=== PATIENT | male | born 1945 | race Caucasian/White ===

== ENCOUNTER → 2017-11-01 | Day surgery (SDC) | payer OTHER ==
--- NOTE | 2017-11-01 08:52 | Operative Report ---
Operative/Inv Procedure Report Surgery Date: 11/01/17 Name of Procedure: Open ventral hernia repair with mesh Pre-Operative Diagnosis: Ventral hernia Post-Operative Diagnosis: Same Estimated Blood Loss: scant Surgeon/[employer] Policy Analyst: Rd Cherry MD Anesthesia: laryngeal mask airway Implants: 6.4 cm ventral Hola mesh Operative/Procedure Note Note: After informed consent patient brought to the operating room and laid supine. Gen. anesthesia obtained and the abdomen was prepped and draped. The periumbilical tissues were infiltrated with a cocktail local anesthesia. A curvilinear incision was made sharply. We dissected down to the umbilical stalk and circumferentially dissected it bluntly. The stock was then transected with cautery, thus exposing the defect. The hernia sac was circumferentially dissected down to level of fascia and incised the neck with cautery. Contents were then reduced. A small hole in the peritoneum was repaired with a running 3 -0 Vicryl suture. Preperitoneal planes were then created a circumferential fashion due to the need for preperitoneal mesh placement. We measured the defect. Defect was 3 cm in greatest dimension, transverse. 6.4 cm mesh was chosen and placed into the cavity. then unraveled below the defect. The fascia was then closed over the mesh with interrupted 0 Maxon sutures, incorporating a portion of the mesh laterally to keep it centered. Wound was irrigated with saline. The umbilical stalk re-created with 3-0 Vicryl. Incision was then closed in layers of Vicryl. Sterile dressings were applied. Sponge and needle counts are correct CC: Rizwan Jackson DO
== END ==
LOC: STS 01:32
DX: K43.9 Ventral hernia without obstruction or gangrene (principal); I10 Essential (primary) hypertension; E11.9 Type 2 diabetes mellitus without complications; Z87.891 Personal history of nicotine dependence; K51.90 Ulcerative colitis, unspecified, without complications
CPT/HCPCS: J0690; J2250; J3490